=== PATIENT | female | born 1935 | race Caucasian/White ===

== ENCOUNTER 2017-08-28 19:21 | Emergency (ER) | payer MEDICARE, OTHER ==
[2017-08-28 19:53] LABS: Urine Bilirubin Negative (NEGATIVE); Urine Blood 25 /ul (NEGATIVE); Urine Ketone Negative (NEGATIVE); Urine Nitrite Negative (NEGATIVE); Urine Protein Negative (NEGATIVE); Urine Specific Gravity 1.015 SP.GR. (1.005-1.010); Urine Urobilinogen Normal (NORMAL)
[2017-08-28 20:04] LABS: Hematocrit 32.8 % (37.0-47.0); Hemoglobin 11.5 gm/dL (12.5-16.0); Mean Cell Volume 92.7 fl (78-100); Mean Corpuscular Hemoglobin 32.5 pg (27-31); Mean Corpuscular Hgb Conc 35.1 g/dl (32-36); Mean Platelet Volume 9.1 fl (6.0-9.5); Neutrophil # 3.3 K/mm3 (1.3-6.0); Neutrophil % 52.1 % (42-75.0); Platelet Count 203 K/mm3 (150-450); Red Blood Count 3.54 M/mm3 (4.2-5.4); Red Cell Distribution Width 11.9 % (11.5-14.0); White Blood Count 6.4 K/mm3 (4.0-10.5)
[2017-08-28 20:05] LABS: Urine Appearance Clear; Urine Bacteria 1+; Urine Color Yellow; Urine RBC TRACE /hpf (0-5); Urine WBC 0-5 /hpf (0-5)
[2017-08-28] MEDS ORDERED: ALBUTEROL SULFATE/IPRATROPIUM 3 ML NEBU IH ONE ×2 (20:28→20:30)
[2017-08-28 20:35] LABS: ALT 20 U/L (19-67); AST 23 U/L (0-48); Albumin * 3.6 gm/dl (3.4-5.0); Alkaline Phosphatase * 61 U/L (50-170); Anion Gap 13.3 mmol/L (6.8-13.8); BUN/Creatinine Ratio 17.6 (9.0-21.6); Bilirubin, Total 0.4 mg/dL (0.0-1.1); Blood Urea Nitrogen 16 mg/dL (3-23); Ca. Corrected For Albumin 8.9 mg/dL (8.4-10.2); Calcium * 8.9 mg/dL (7.9-10.9); Carbon Dioxide 26.2 mmol/L (24-32.6); Chloride 92 mmol/L (97-106); Glucose * 113 mg/dL (70-110); Magnesium 1.8 mg/dL (1.2-2.8); Potassium 4.5 mmol/L (3.4-4.6); Sodium 127 mmol/L (132-142); Total Protein 7.5 gm/dL (6.2-8.2); Troponin I Less than 0.017 ng/ml (0.00-0.10)
--- NOTE | 2017-08-28 20:35 | ERNOTE ---
Medical Problem HPI - General Chief Complaint: General Assessment Time Seen by Provider: 08/28/17 20:22 Source: patient Exam Limitations: no limitations - Immun/Allergies/Home Medications Immunizations: IMMUNIZATION HX Immunizations Up to Date Yes History of Influenza Vaccine Yes Hx Pneumococcal Vaccination Yes Allergies/Adverse Reactions: Allergies No Known Allergies Allergy (Verified 08/28/17 19:36) Home Medications: HOME MEDICATIONS Multivitamin [Daily Vitamin Formula] 1 dose PO DAILY 09/18/12 [Last Taken Unknown] Acetaminophen [Tylenol] 650 mg PO Q6H PRN #1 tablet 06/18/15 [Last Taken Unknown ] Atenolol [Tenormin] 25 mg PO Q12H #1 tablet 06/18/15 [Last Taken Unknown] Levothyroxine Sodium [Synthroid] 75 mcg PO DAILY #1 tablet 06/18/15 [Last Taken Unknown] Sulfamethoxazole/Trimethoprim [Bactrim Ds] 1 tab PO BID #5 tab 08/28/17 [Last Taken Unknown] - History of Present History Narrative: Pt states she has had a cough since and today began to have dizziness and weakness this afternoon. Timing: getting worse Severity: moderate Review of Systems - Review of Systems Constitutional: Present: recent illness EYE: Present: no symptoms reported ENT: Present: nose congestion Respiratory: Present: cough, orthopnea Cardiology: Absent: chest pain, palpitations, syncope Gastrointestinal/Abdominal: Absent: nausea, vomiting Genitourinary: Present: no symptoms reported Musculoskeletal: Present: no symptoms reported Skin: Present: no symptoms reported Neurological: Present: dizziness/light-headedness, weakness. Absent: numbness Endocrine: Absent: excessive sweating Hematologic/Lymphatic: Present: no symptoms reported Psych: Present: no symptoms reported - Patient's Past Medical History Patient History - Medical: Arthritis, Hypothyroidism, Other Patient History - Cardiac/Respiratory: No pertinent hx Patient History - Cancer: No Hx of Cancer Patient History - Surgical Procedures: Total Hip Replacement, T & A, Other Patient History - Other: None LMP (females 10-50): post men - Family History Mother Family History - Cardiac/Respiratory: Other Father Family History - Medical: Alzheimer's Disease, Other - Social History Living Situations: home Abuse History: No History of abuse Psych History: No pertinent hx Smoking Status: Never smoker Alcohol Use: none Drug Use: none - Immunizations Immunizations Up to Date: Yes Hx Pneumococcal Vaccination: Yes History of Influenza Vaccine: Yes Physical Exam - Physical Exam General Appearance: Present: wd/wn, alert, no apparent distress Head Exam: Present: normal inspection, no evidence of injury Eye Exam: Normal inspection: bilateral Ears, Nose, Throat: Present: normal ENT inspection Neck: Present: normal inspection, nontender Respiratory: Present: no respiratory distress, no accessory muscle use, chest nontender, rhonchi, wheezing Cardiovascular/Chest: Present: regular rate, rhythm, no murmur Gastrointestinal/Abdominal: Present: nondistended, soft Extremity Exam: Present: normal inspection, normal range of motion, extremity edema - 1+ Neurological Exam: Present: alert, oriented, normal mood/affect, no motor/ sensory deficits Skin Exam: Present: normal color, warm/dry Lymphatic Exam: Present: no adenopathy ED Progress - Results and Orders Patient's Lab Results:: I have reviewed the patient's lab results. Results and Orders: Laboratory Tests 08/28/17 08/28/17 08/28/17 19:47 19:58 19:58 WBC 6.4 Hgb 11.5 L Hct 32.8 L Plt Count 203 Sodium 127 L Potassium 4.5 Chloride 92 L Carbon Dioxide 26.2 BUN 16 Creatinine 0.91 Random Glucose 113 H Calcium 8.9 Magnesium 1.8 Total Bilirubin 0.4 AST 23 ALT 20 Alkaline Phosphatase 61 Troponin I Less than 0.017 B-Natriuretic Peptide Total Protein 7.5 Albumin 3.6 Urine Color Yellow Urine Appearance Clear Urine pH 6.0 Ur Specific Gove 1.015 Urine Protein Negative Urine Glucose (UA) Negative Urine Ketones Negative Urine Blood 25 H Urine Nitrate Negative Urine Bilirubin Negative Urine Urobilinogen Normal Ur Leukocyte Esterase 100 H Urine RBC Trace Urine WBC 0-5 Ur Epithelial Cells 0-5 Urine Bacteria 1+ H Urine Culture Comments Culture to follow 08/28/17 19:58 WBC Hgb Hct Plt Count Sodium Potassium Chloride Carbon Dioxide BUN Creatinine Random Glucose Calcium Magnesium Total Bilirubin AST ALT Alkaline Phosphatase Troponin I B-Natriuretic Peptide 566 H Total Protein Albumin Urine Color Urine Appearance Urine pH Ur Specific Gove Urine Protein Urine Glucose (UA) Urine Ketones Urine Blood Urine Nitrate Urine Bilirubin Urine Urobilinogen Ur Leukocyte Esterase Urine RBC Urine WBC Ur Epithelial Cells Urine Bacteria Urine Culture Comments - Vital Signs Patient's Vital Signs:: I have reviewed the patient's vital signs. Vital Signs: Vital Signs 08/28/17 08/28/17 19:31 19:54 Temperature 36.4 C L 36.4 C L Pulse Rate 46 L 54 L Respiratory 16 17 Rate Blood Pressure 174/91 201/74 O2 Sat by Pulse 99 98 Oximetry - EKG EKG: other - sinus bradycardia 42 bpm EKG read: Interp. by me - X-Ray X-Ray #1 X-Ray: chest Interpretation: Reviewed by me X-ray Comments: IMPRESSION: Mild left basilar heterogeneous opacities which may relate to subsegmental atelectasis. Superimposed infection or aspiration not excluded. Cardiomegaly. Electronically signed by Qi Taylor D.O.. - Progress/Reassessment Chief Complaint: General Assessment Progress:: Improved Departure Clinical Impression: Bronchitis UTI (urinary tract infection) Qualifiers: Urinary tract infection type: acute cystitis Hematuria presence: with hematuria Qualified Code(s): N30.01 - Acute cystitis with hematuria - Departure Disposition: Home self-care Condition: Good Instructions: Urinary Tract Infection, Adult, [id number], Acute Bronchitis, [id number] Referrals: Nicki Nunez MD [Primary Care Provider] - Prescriptions: Sulfamethoxazole/Trimethoprim [Bactrim Ds] 1 tab PO BID #5 tab
[2017-08-28] MEDS ORDERED: ALBUTEROL SULFATE 60 PUFF INHALER IH ONE (22:31)
[2017-08-28] MEDS ORDERED: SULFAMETHOXAZOLE/TRIMETHOPRIM 1 TAB TABLET PO ONE (22:32)
[2017-08-28] MEDS ORDERED: SULFAMETHOXAZOLE/TRIMETHOPRIM 1 TAB TABLET ONE (22:45)
[2017-08-28] MEDS ORDERED: ALBUTEROL SULFATE 200 PUFF INHALER IH ONE (22:45)
[2017-08-28 23:33] VITALS: BP 187/64
== END 2017-08-28 23:00 | disposition home or self-care (01) ==
LOC: ER 19:21
DX: J40 Bronchitis, not specified as acute or chronic (principal); N30.01 Acute cystitis with hematuria

== ENCOUNTER 2017-11-13 18:21 | Emergency (ER) | payer MEDICARE ==
--- NOTE | 2017-11-13 18:55 | ERNOTE ---
Medical Problem HPI - General Chief Complaint: General Assessment Time Seen by Provider: 11/13/17 18:35 Source: patient Exam Limitations: no limitations - Immun/Allergies/Home Medications Immunizations: IMMUNIZATION HX Immunizations Up to Date Yes Immunizations Comment States probably 10 years since pnemonia shot History of Influenza Vaccine Yes Hx Pneumococcal Vaccination More Information Required Allergies/Adverse Reactions: Allergies No Known Allergies Allergy (Verified 11/13/17 18:33) Home Medications: HOME MEDICATIONS Multivitamin [Daily Vitamin Formula] 1 dose PO DAILY 09/18/12 [Last Taken Unknown] Acetaminophen [Tylenol] 650 mg PO Q6H PRN #1 tablet 06/18/15 [Last Taken Unknown ] Atenolol [Tenormin] 25 mg PO Q12H #1 tablet 06/18/15 [Last Taken Unknown] Levothyroxine Sodium [Synthroid] 75 mcg PO DAILY #1 tablet 06/18/15 [Last Taken Unknown] Sulfamethoxazole/Trimethoprim [Bactrim Ds] 1 tab PO BID #20 tab 11/13/17 [Last Taken Unknown] Sulfamethoxazole/Trimethoprim [Bactrim Ds] 1 tab PO BID #20 tab 11/13/17 [Last Taken Unknown] - History of Present History Narrative: Patient presents with generalized weakness somewhat similar to when she had a urinary tract infection 3 months ago. Patient denies any cough or fever. She states she has not fallen and does not feel dizzy. Timing: constant Severity: mild Review of Systems - Review of Systems Constitutional: Present: See HPI EYE: Present: no symptoms reported ENT: Present: no symptoms reported Respiratory: Present: no symptoms reported Cardiology: Present: no symptoms reported Gastrointestinal/Abdominal: Present: no symptoms reported Genitourinary: Present: no symptoms reported Musculoskeletal: Present: no symptoms reported Skin: Present: no symptoms reported Neurological: Present: no symptoms reported Endocrine: Present: no symptoms reported Hematologic/Lymphatic: Present: no symptoms reported Psych: Present: no symptoms reported - Patient's Past Medical History Patient History - Medical: Arthritis, Hypothyroidism, Other Patient History - Cardiac/Respiratory: Hypertension Patient History - Cancer: No Hx of Cancer Patient History - Surgical Procedures: Total Hip Replacement, T & A, Other Patient History - Other: None - Family History Mother Family History - Cardiac/Respiratory: Other Father Family History - Medical: Alzheimer's Disease, Other - Social History Abuse History: No History of abuse Psych History: No pertinent hx Smoking Status: Never smoker Have you smoked in the past 12 months: No Do you dip or chew tobacco: No Alcohol Use: none Drug Use: none - Immunizations Immunizations Up to Date: Yes Hx Pneumococcal Vaccination: More Information Required to Determine History of Influenza Vaccine: Yes Physical Exam - Physical Exam General Appearance: Present: wd/wn, alert, no apparent distress Head Exam: Present: normal inspection, no evidence of injury Eye Exam: Normal inspection: bilateral, PERRL: bilateral Ears, Nose, Throat: Present: normal ENT inspection, H, normal pharynx Neck: Present: normal inspection, nontender Respiratory: Present: no respiratory distress, normal breath sounds, no accessory muscle use, chest nontender, lungs clear Cardiovascular/Chest: Present: regular rate, rhythm, no murmur, normal peripheral pulses Gastrointestinal/Abdominal: Present: normal bowel sounds, nontender, nondistended, soft, no organomegaly Rectal Exam: Present: deferred Back Exam: Present: normal inspection, normal range of motion Extremity Exam: Present: normal inspection, non-tender, no edema, normal range of motion Neurological Exam: Present: alert, oriented, normal mood/affect Skin Exam: Present: normal color, warm/dry Lymphatic Exam: Present: no adenopathy ED Progress - Results and Orders Patient's Lab Results:: I have reviewed the patient's lab results. - Vital Signs Patient's Vital Signs:: I have reviewed the patient's vital signs. Vital Signs: Vital Signs 11/13/17 18:27 Temperature 36.8 C Pulse Rate 65 Respiratory 16 Rate Blood Pressure 167/91 O2 Sat by Pulse 99 Oximetry - Progress/Reassessment Chief Complaint: General Assessment Departure Clinical Impression: UTI (urinary tract infection) Qualifiers: Urinary tract infection type: site unspecified Hematuria presence: without hematuria Qualified Code(s): N39.0 - Urinary tract infection, site not specified - Departure Disposition: Home self-care Condition: Good Instructions: Urinary Tract Infection, Adult, [id number] Referrals: Nicki Nunez MD [Primary Care Provider] - Prescriptions: Sulfamethoxazole/Trimethoprim [Bactrim Ds] 1 tab PO BID #20 tab Sulfamethoxazole/Trimethoprim [Bactrim Ds] 1 tab PO BID #20 tab
[2017-11-13 19:16] LABS: Hematocrit 33.4 % (37.0-47.0); Mean Cell Volume 91.3 fl (78-100); Mean Corpuscular Hemoglobin 32.8 pg (27-31); Mean Corpuscular Hgb Conc 35.9 g/dl (32-36); Mean Platelet Volume 9.1 fl (6.0-9.5); Neutrophil # 5.5 K/mm3 (1.3-6.0); Neutrophil % 74.2 % (42-75.0); Platelet Count 196 K/mm3 (150-450); Red Blood Count 3.66 M/mm3 (4.2-5.4); Red Cell Distribution Width 11.9 % (11.5-14.0); White Blood Count 7.5 K/mm3 (4.0-10.5)
[2017-11-13 19:33] LABS: Urine Appearance Clear; Urine Bilirubin Negative (NEGATIVE); Urine Blood 25 /ul (NEGATIVE); Urine Color Yellow; Urine Ketone Negative (NEGATIVE); Urine Nitrite Negative (NEGATIVE); Urine Protein Negative (NEGATIVE); Urine RBC TRACE /hpf (0-5); Urine Urobilinogen Normal (NORMAL); Urine WBC 0-5 /hpf (0-5)
[2017-11-13 19:34] LABS: Urine Bacteria TRACE
[2017-11-13] MEDS ORDERED: SULFAMETHOXAZOLE/TRIMETHOPRIM 1 TAB TABLET PO ONE (19:44)
[2017-11-13] MEDS ORDERED: SULFAMETHOXAZOLE/TRIMETHOPRIM 1 TAB TABLET ONE (19:46)
[2017-11-13 19:56] VITALS: BP 157/70
[2017-11-13 20:03] LABS: Albumin * 3.6 gm/dl (3.4-5.0); BUN/Creatinine Ratio 16.3 (9.0-21.6); Bilirubin, Total 0.4 mg/dL (0.0-1.1); Ca. Corrected For Albumin 8.9 mg/dL (8.4-10.2); Calcium * 8.9 mg/dL (7.9-10.9); Magnesium 1.7 mg/dL (1.2-2.8); Potassium 4.5 mmol/L (3.4-4.6); Total Protein 7.4 gm/dL (6.2-8.2)
[2017-11-13 20:06] LABS: Anion Gap 12.1 mmol/L (6.8-13.8); Carbon Dioxide 26.4 mmol/L (24-32.6)
== END 2017-11-13 19:56 | disposition home or self-care (01) ==
LOC: ER 18:21
DX: N39.0 Urinary tract infection, site not specified (principal); I10 Essential (primary) hypertension; E03.9 Hypothyroidism, unspecified